=== PATIENT | female | born 1980 | race Two or more races ===

== ENCOUNTER → 2016-08-30 | Outpatient (CLI) | payer MEDICAID ==
[~2016-08-30] VITALS: Ht 170.2 cm; Wt 117.0 kg
== END | disposition home or self-care (01) ==
LOC: HDHVI->DVH 11:56
PROVIDERS: ATTEND Internal Medicine Cardiovascular Disease
DX: Z13.89 Encounter for screening for other disorder (principal); Z82.49 Family history of ischemic heart disease and other diseases of the circulatory system
CPT/HCPCS: 93017; 93306

== ENCOUNTER 2020-10-11 08:00 | Day surgery (SDC) | payer BC ==
[~2020-10-11] VITALS: Ht 170.2 cm; Wt 86.2 kg
[~2020-10-11 08:00] MED LIST: BIOT5TAB4 PO; CHOLPOW45 PO; ECHI1CAP PO; GLUT1POW XX; IBUP400T22 PO; METH1POW PO; MULT-931 PO; MULT1TAB70 PO; MULTCAP98 PO; OMEG100062 PO; TURM500C3 PO; VITA400T4 PO; [UNRECOGNIZED DRUG - CODE] PO; [UNRECOGNIZED DRUG - CODE] PO; [UNRECOGNIZED DRUG - CODE] PO; [UNRECOGNIZED DRUG - CODE] XX
[2020-10-11] MEDS ORDERED: ceFAZolin 1GM/50ML 100 ML IV ONE (08:11)
[2020-10-11] MEDS ORDERED: ROPIVACAINE 0.5% (5MG/ML) 20ML AMPULE IJ ONE (09:39)
[2020-10-11] MEDS ORDERED: EPINEPHrine HCL 1 MG/1 ML AMP ONE ×6 (09:41→12:54)
[2020-10-11] MEDS ORDERED: fentaNYL CITRATE 100 MCG/2 ML VL ONE ×2 (10:43→13:07)
[2020-10-11] MEDS ORDERED: MIDAZOLAM HCL 1MG/1ML-2 ML VIAL ONE (10:43)
[2020-10-11] MEDS ORDERED: MORPHINE SULF(PF) 0.5MG/ML 10ML VIAL ONE (10:43)
[2020-10-11] MEDS ORDERED: PROPOFOL 10 MG/ML 20 ML IV ONE (11:08)
[2020-10-11] MEDS ORDERED: LIDOCAINE 2% (LOCAL ANESTH.) PF 5ml SDV ONE (11:08)
[2020-10-11] MEDS ORDERED: ONDANSETRON HCL 4 MG/2 ML VIAL ONE (11:08)
[2020-10-11] MEDS ORDERED: ROCURONIUM 10MG/ML 10ML VIAL IV ONE (11:22)
[2020-10-11] MEDS ORDERED: ePHEDrine SULFATE 50 MG/ML AMP ONE ×2 (11:47→12:30)
[2020-10-11] MEDS ORDERED: GLYCOPYRROLATE 0.2 MG/ML 1ML VIAL ONE (11:51)
[2020-10-11] MEDS ORDERED: HYDROmorphone HCL 2 MG/ML VL IV PRN (14:15)
[2020-10-11] MEDS ORDERED: ONDANSETRON HCL 4 MG/2 ML VIAL IV PRN (14:15)
[2020-10-11 14:45] VITALS: BP 140/86
== END 2020-10-11 15:00 | disposition home or self-care (01) ==
LOC: SUR 08:00
PROVIDERS: ATTEND Orthopaedic Surgery
DX: S83.511A Sprain of anterior cruciate ligament of right knee, initial encounter (principal); M23.221 Derangement of posterior horn of medial meniscus due to old tear or injury, right knee; Z20.822 Contact with and (suspected) exposure to COVID-19; Z98.890 Other specified postprocedural states; Z79.899 Other long term (current) drug therapy; Z68.29 Body mass index [BMI] 29.0-29.9, adult; X58.XXXA Exposure to other specified factors, initial encounter; Y93.89 Activity, other specified; Y92.89 Other specified places as the place of occurrence of the external cause; Y99.8 Other external cause status
CPT/HCPCS: 29881; 29888; J0171; J0690; J1170; J2001; J2250; J2405; J2704; J2795; J3010; U0003